=== PATIENT | male | born 1975 | race Hispanic/Latino ===

== ENCOUNTER 2017-10-21 21:17 | Emergency (ER) | payer SELFPAY ==
[2017-10-21 22:51] VITALS: BP 151/103
[2017-10-21] MEDS ORDERED: MOTRIN PO ONE (23:49)
--- NOTE | 2017-10-22 00:23 | XRay Report ---
FINAL REPORT EXAM: XR HAND 2V LT HISTORY: left hand swelling TECHNIQUE: AP and lateral views of the left hand were obtained. FINDINGS: There are multiple metallic fragments within the soft tissues adjacent to the 5th, 4th and 3rd metacarpals. There is a comminuted fracture through the midshaft of the 5th metacarpal without angulation. There is extensive soft tissue swelling overlying the dorsal aspect of the 2nd through 5th metacarpals. There additional metallic fragments position between proximal phalanges of 3rd 4th finger and adjacent to the distal phalanx of the 3rd finger. The wrist joint is not show any fractures. IMPRESSION: Comminuted nondisplaced midshaft fracture of the 5th metacarpal. Numerous metallic foreign bodies within the palmar and dorsal soft tissues primarily between the 3rd and 5th metacarpals. Additional small fragments as described. Nonspecific soft tissue swelling around the 2nd through 5th metacarpals.
[2017-10-22] MEDS ORDERED: NORCO 5/325 PO ONE (01:16)
[2017-10-22] MEDS ORDERED: NORCO 5/325 ONE (01:17)
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
[2017-10-22] MEDS ORDERED: KEFLEX PO ONE (06:41)
== END 2017-10-22 07:36 | disposition home or self-care (01) ==
LOC: ED 21:17
DX: S62.357A Nondisplaced fracture of shaft of fifth metacarpal bone, left hand, initial encounter for closed fracture (principal); F17.200 Nicotine dependence, unspecified, uncomplicated; W17.89XA Other fall from one level to another, initial encounter; Y93.89 Activity, other specified; Y92.89 Other specified places as the place of occurrence of the external cause; Y99.8 Other external cause status